=== PATIENT | female | born 1935 | race Caucasian/White ===

== ENCOUNTER 2016-07-07 21:11 | Inpatient (IN) | payer OTHER ==
[~2016-07-07] VITALS: Ht 172.7 cm; Wt 70.2 kg
--- NOTE | 2016-07-07 23:59 | DIAGNOSTIC IMAGING REPORT ---
PROCEDURE: CT HEAD WITHOUT CONTRAST INDICATION: MENTAL STATUS CHANGE TECHNIQUE: Noncontrast axial images with sagittal and coronal reformations. COMPARISON: None. FINDINGS: There is evidence of mild old small vessel disease with chronic mild atrophic changes of. Brain and ventricles are otherwise normal. No evidence of an acute process or hemorrhage. Sinuses and mastoids are normal. IMPRESSION: 1. 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 2. Otherwise negative head CT. No evidence of acute process. 3. Findings discussed with Dr. Arian Patterson at [address] scans at this facility use dose modulation, iterative reconstruction, and/or weight-based dosing when appropriate to reduce radiation dose to as low as reasonably achievable.
[2016-07-08] VITALS (10 sets, daily range): BP systolic 89–127; BP diastolic 45–85
--- NOTE | 2016-07-08 00:01 | DIAGNOSTIC IMAGING REPORT ---
PROCEDURE: XR CHEST 1 VIEW INDICATION: Found down. History of lung mass (previously biopsied). History breast carcinoma. TECHNIQUE: Portable AP view (2330 hours). COMPARISON: Compared to chest x-ray on 05/11/2013. FINDINGS: Allowing for overlying wires and electrodes, there is mild chronic focal atelectasis at the right lung base. Lungs otherwise clear. Heart and mediastinum are normal. Thorax is normal. IMPRESSION: 1. Mild chronic focal scarring at the right lung base. 2. Otherwise negative chest. 3. Findings discussed with Dr. Arian Patterson.
--- NOTE | 2016-07-08 00:27 | ED CLINICAL REPORT ---
Clinical Report - Physicians/Mid Levels [facility] [address] [place] [address] 07/07/2016 21:11 Patient: MARIA DE JESUS NICHOLSON Time Seen: 22:59 Jul 07 2016. Arrived- By private vehicle. Historian- patient. CPT: ER phys charges level 5 plus (#[id number]). EKG interpretation (#[id number]). HISTORY OF PRESENT ILLNESS Chief Complaint: DECREASED MENTAL STATUS. This occurred at an unknown time. Occurred at home. ( Patient neighbor called EMS when she found the patient in her room on the floor. Patient states she does not recall falling and does not remember when. It is estimated she fell over 12 hours ago. Patient denies pain or injury. She denies being sick or ill lately. Patient lives alone at home. She is a poor historian and unsure of her medications, complete health history, or recent surrounding events of the fall.). Pt has no memory of the event. Is still present. The patient has been confused and is described as having decreased responsiveness. The patient was found unresponsive. No alcohol recently or recent drug use. Dextro stick was not low prior to arrival. The patient has had weakness. No numbness. No difficulty walking. She has had a recent fall. Usually has normal mobility. Similar symptoms previously: None. Recent medical care: Not recently seen/assessed. REVIEW OF SYSTEMS No fever, headache, dizziness, chest pain or difficulty breathing. No cough, sputum production, sore throat or throat or abdominal pain. No nausea, diarrhea, black stools, difficulty with urination or skin rash. No joint pain, vomiting, bloody stools, back pain or weakness. No diabetic symptoms or easy bruising. The patient sustained a head injury. No difficulty walking. Denies feeling ill. All systems otherwise negative, except as recorded above. PAST HISTORY See nurses notes. ( She denies hx of stroke or GA, Cancer). Medications: Unknown. Allergies: Clindamycin HCl. Neosporin. SOCIAL HISTORY Light tobacco smoker (cigarette)- less than 1/2 a pack per day. No alcohol use or drug use. ADDITIONAL NOTES The nursing notes have been reviewed. PHYSICAL EXAM Vital Signs: 07/07/2016 21:28 BP: 131/53. HR: 80. RR: 20. O2 saturation: 95%. Pain level now: 0/10. 07/07/2016 05:15 Temp: 97.9 F. Appearance: Alert. No acute distress. Head: Mild tenderness in the right frontal and alevism region. Mild ecchymosis in the right parietal and alevism region. Eyes: Pupils equal, round and reactive to light. Neck: Normal inspection. Neck supple. No meningeal signs. (non-tender.). CVS: Normal heart rate and rhythm. Heart sounds normal. Respiratory: No respiratory distress. Breath sounds normal. Abdomen: Soft and nontender. Back: Normal inspection. Skin: Skin warm. Normal skin color. No rash. Extremities: Extremities exhibit normal ROM. No lower extremity edema. Neuro: Alert. The patient is disoriented. Mood/affect normal. Speech normal. Cranial nerves normal (as tested). No cerebellar findings. No motor deficit. No sensory deficit. Reflexes normal. LABS, X-RAYS, AND EKG EKG: Normal sinus rhythm. Normal P waves. Q waves in lead V1, V2 and V3 consistent with anterior infarction. LVH. Left axis deviation. Normal ST and T waves. Prior EKG unavailable. The study has been interpreted contemporaneously. The study has been independently viewed by me. The EKG appears to be a good tracing. Chest X-ray: (Scarring right base.). Views: AP (portable). Technique: good. The X-rays were independently viewed by me, interpreted by the radiologist and discussed with the radiologist. Laboratory Tests: UA-Culture if indicated: (JUSTINE: 07/07/2016 21:45) ( MsgRcvd 07/07/2016 22:46) Final results Test Result Flag Units (Reference) URINE COLOR STRAW URINE APPEARANCE CLEAR URINE GLUCOSE NEGATIVE (NEGATIVE) URINE BILIRUBIN NEGATIVE (NEGATIVE) URINE KETONE 2+ (NEGATIVE) URINE SPECIFIC GRAVITY 1.025 (1.010-1.030) URINE PH 6.0 (5.0-8.0) URINE PROTEIN 2+ (NEGATIVE) URINE UROBILINOGEN 0.2 EU/dL (0.2-1.0) URINE NITRITE NEGATIVE (NEGATIVE) URINE BLOOD 3+ (NEGATIVE) URINE LEUK ESTERASE NEGATIVE (NEGATIVE) URINE RBC 3-5 rbc/hpf (0-1) URINE WBC 0-1 wbc/hpf (0-1) URINE EPITHELIAL CELLS NONE SEEN EPI/hpf (0-5) URINE BACTERIA TRACE (<1+) (NONE SEEN) URINE COMMENT CULT NOT INDICATED URINE CULTURES ARE SET-UP BASED ON THE FOLLOWING CRITERIA:POSITIVE NITRITEPOSITIVE LEUKOCYTE ESTERASEGREATER THAN 10 WHITE BLOOD CELLSMODERATE (2+) OR GREATER BACTERIA CBC w Diff: (JUSTINE: 07/07/2016 21:45) ( [facility] 07/07/2016 22:29) Final results Test Result Flag Units (Reference) WHITE BLOOD COUNT 12.4 H K/uL (4.5-11.5) RED BLOOD COUNT 4.95 M/uL (4.00-5.20) HEMOGLOBIN 14.9 gm/dL (12.0-16.0) HEMATOCRIT 43.8 % (36.0-46.0) MEAN CELL VOLUME 89 fL (80-100) MEAN CORPUSCULAR HGB 30 pg (26-34) MEAN CORPUSCULAR HGB CONC 34 g/dL (31-37) RED CELL DISTRIBUTION WIDTH 14.1 % (11.6-14.8) PLATELET COUNT 203 K/uL (150-400) NEUTROPHIL % 89.6 H % (50-75) LYMPH % 7.3 L % (25-40) MONO % 3.0 % (3-14) EOSINOPHIL % 0 % (0-4) BASOPHIL % 0.1 % (0-2) Lactate, Serum: (JUSTINE: 07/07/2016 00:10) ( [facility] 07/08/2016 00:50) Final results Test Result Flag Units (Reference) LACTIC ACID 1.6 mmol/L (0.4-2.0) [id number]: (JUSTINE: 07/07/2016 21:45) ( [facility] 07/08/2016 00:33) Final results Test Result Flag Units (Reference) PROCALCITONIN 2.2 H ng/mL (0-0.5) PCT Concentration: Interpretation : Risk/option for action PCT <=0.5 ng/mL : Systemic : Low risk forinfection(sepsis): progression to severeis not likely. : systemic infection.Local bacterial : CAUTION-PCT levelsinfection is : below 0.5 ng/mL do notpossible. : exclude an infection,because localizedinfections (withoutsystemic signs) may beassociated with suchlow levels. If PCT ismeasured very earlyafter a bacterialchallenge (usually <6hours), these valuesmay still be low. Inthis case PCT shouldbe re-assessed 6-24hours later. PCT >0.5 and : Systemic infection: Moderate risk for<= 2 ng/mL : (sepsis) is : progression to severepossible, but : systemic infection.other conditions : The patient should beare known to : closely monitoredelevate PCT. : both clinically andby re-assessing PCTwithin 6-24 hours. PCT > 2 ng/mL : Systemic infection: High risk for(sepsis) is likely: progression to severeunless other : systemic infection.causes are known. : PCT >= 10 ng/mL : Important systemic: High likelihood ofinflammatory : severe sepsis orresponse, almost : septic shock.exclusively due to:severe bacterial :sepsis or septic :shock. : Urine Drug Screen: (JUSTINE: 07/07/2016 21:45) ( MsgRcvd 07/07/2016 22:35) Final results Test Result Flag Units (Reference) AMPHETAMINE/METHAMPHETAMINE NEGATIVE (NEGATIVE) BARBITURATE NEGATIVE (NEGATIVE) BENZODIAZEPINE NEGATIVE (NEGATIVE) CANNABINOID NEGATIVE (NEGATIVE) COCAINE NEGATIVE (NEGATIVE) ECSTASY NEGATIVE (NEGATIVE) METHADONE NEGATIVE (NEGATIVE) OPIATE NEGATIVE (NEGATIVE) The urine drug screen is a qualitative screening test fordrug overdose and abuse. All screen results should beconsidered as presumptive.Drugs screened for are as follows:BenzodiazepinesCocaineAmphetamines/MetamphetaminesTHC (Tetrahydrocannabinol)OpiatesBarbituratesEcstasyMethadonePositive results are unconfirmed. For confirmation, notifythe lab for the specimen to be sent to the reference lab.All confirmations must be performed by a differentmethodology.The ingestion of natural herbal and plant productscontaining Ephedra/Ephedra metabolites can produce in urineone or more substances capable of cross reacting withamphetamine/methamphetamine immunoassays. These testsprovide a preliminary result only. A more specificalternative chemical method must be used to obtain aconfirmed analytical result. CMP: (JUSTINE: 07/07/2016 21:45) ( MsgRcvd 07/07/2016 22:39) Final results Test Result Flag Units (Reference) GLUCOSE 118 H mg/dL (70-110) BUN 30 H mg/dL (7-18) CREATININE 0.9 mg/dL (0.6-1.3) Estimated GFR >60 mL/min Estimated GFR- >60 mL/min Note: Persistent reduction over 3 months in eGFR<60 mL/min/1.73 m2 defines CKD. Patients with eGFR values>=60 mL/min/1.73 m2 may also have CKD if evidence ofpersistent proteinuria. Additional information may be foundat www.kidney.org. SODIUM 144 mmol/L (136-145) POTASSIUM 2.5 *L mmol/L (3.5-5.1) CRITICAL RESULTS CALLEDCalled to JASMIN BONILLA RN 07/07/16 [id number] 2 patient identifiers used? YWas the result read back? Y CHLORIDE 102 mmol/L (98-107) CARBON DIOXIDE 33 H mmol/L (21-32) CALCIUM 9.2 mg/dL (8.5-10.1) TOTAL PROTEIN 7.3 g/dL (6.4-8.2) ALBUMIN 3.1 L g/dL (3.3-5.0) BILIRUBIN, TOTAL 0.8 mg/dL (0.0-1.0) ALKALINE PHOSPHATASE 66 U/L (46-116) AST (SGOT) 86 H U/L (15-37) ALT (SGPT) 46 U/L (12-78) MAGNESIUM 1.9 mg/dL (1.8-2.4) LIPASE 77 U/L (73-393) AMYLASE 25 U/L (25-115) . PROGRESS AND PROCEDURES Course of Care: IV NS KCL 20 meq po KCL 20 meq IV. Pt with syncope of unclear etiology. Dehydration and hypokalemia may contribute. Discussed case with on-call health care provider, (Curly). Reviewed test results. Agreed upon treatment plan and decision to admit. Health care provider will see patient in ED. Patient/family counseled. Old medical records ordered. Disposition orders written. Disposition: Admitted to Acute Care. CLINICAL IMPRESSION Syncope of unknown cause .12 lead EKG performed. Acute mental status change with lethargy and confusion. Hypokalemia Dehydration Pre-renal azotemia. (Electronically signed by Arian Patterson MD 07/08/2016 7:42)
--- NOTE | 2016-07-08 00:27 | ED ORDER SUMMARY ---
..... Patient: MARIA DE JESUS NICHOLSON OrderSheet [facility] VisitID: [id number] [address] [place] [address] 81y, F Registration Date/Time: 07/07/2016 ORDER SHEET Weight: 65.7 kg (stated) Allergies: Clindamycin HCl, Neosporin GENERAL ORDERS: CBC w Diff Urgent (22:17 07/07/2016 [facility] per protocol) (22:17 [facility]) CMP Urgent (22:17 07/07/2016 [facility] per protocol) (22:17 [facility]) UA-Culture if indicated Urgent (22:17 07/07/2016 [facility] per protocol) (22:17 [facility]) Urine Drug Screen Urgent (22:17 07/07/2016 [facility] per protocol) (22:17 [facility]) Lipase Urgent (22:17 07/07/2016 [facility] per protocol) (22:17 [facility]) Amylase Urgent (22:17 07/07/2016 [facility] per protocol) (22:17 [facility]) EKG - ER Stat (22:17 07/07/2016 [facility] per protocol) (22:17 [facility]) Chest 1V Urgent (23:12 07/07/2016 Rafa HERNADEZ) (Ack 23:17 AMcQuoid ER Tech1) (23:31 RFay) CT Head wo Cont Urgent (23:12 07/07/2016 Rafa HERNADEZ) (Ack 23:17 AMcQuoid ER Tech1) (23:31 RFay) Criminology Professor (Continuous) (23:12 07/07/2016 Rafa HERNADEZ) (Ack 23:17 AMcQuoid ER Tech1) (23:23 HSoule) Pulse oximeter (23:13 07/07/2016 Rafa HERNADEZ) (Ack 23:17 AMcQuoid ER Tech1) (23:23 HSoule) - (Orthostatic BP/P) (23:13 07/07/2016 Rafa HERNADEZ) (Ack 23:17 AMcQuoid ER Tech1) (0:09 HSoule) Lactate, Serum Urgent (23:42 07/07/2016 Rafa HERNADEZ) (Ack 23:47 AMcQuoid ER Tech1) (0:16 AMcQuoid ER Tech1) PCT (Procalcitonin) Urgent (23:42 07/07/2016 Rafa HERNADEZ) (Ack 23:47 AMcQuoid ER Tech1) (0:16 AMcQuoid ER Tech1) Blood Culture (No) (N/A) Urgent (01:11 07/08/2016 Rafa HERNADEZ) (Ack 1:19 AMcQuoid ER Tech1) (1:39 HSoule) MEDICATION ORDERS: KCl PO 20 meq (NOW) (:37 07/07/2016 Rafa HERNADEZ) (Ack 23:39 HSoule) (0:05 HSoule) IV FLUIDS: IV Saline Lock (:07/07/2016 Rafa HERNADEZ) (23:23 HSoule) IV NS : initial bolus 500 mL (1000 mL/hr), then 250 mL/hr for 2h (NOW); Routine (:07/07/2016 Rafa HERNADEZ) (Ack 23:39 HSoule) (0:05 HSoule) KCl IV 20 meq/100mL (Run no faster than 10 units/hr, Run no faster than 10 mEq/hr) (23:37 07/07/2016 Rfaa HERNADEZ) (Ack 23:39 HSoule) (0:06 HSoule) ORDER SHEET NOTES: [Electronically signed by Mayte Vargas (05:16 07/08/2016)] [Electronically signed by Arian Patterson MD (07:42 07/08/2016)] [Electronically locked/signed by Mayte Vargas (05:16 07/08/2016)]
--- NOTE | 2016-07-08 00:27 | ED ORDER SUMMARY ---
..... Patient: MARIA DE JESUS NICHOLSON OrderSheet [facility] VisitID: [id number] [address] [place] [address] 81y, F Registration Date/Time: 07/07/2016 ORDER SHEET Weight: 65.7 kg (stated) Allergies: Clindamycin HCl, Neosporin GENERAL ORDERS: CBC w Diff Urgent (22:17 07/07/2016 E[facility] per protocol) (22:17 E[facility]ham) CMP Urgent (22:17 07/07/2016 E[facility] per protocol) (22:17 E[facility]) UA-Culture if indicated Urgent (22:17 07/07/2016 E[place] per protocol) (22:17 E[facility]) Urine Drug Screen Urgent (22:17 07/07/2016 E[place] per protocol) (22:17 E[facility]ham) Lipase Urgent (22:17 07/07/2016 E[facility] per protocol) (22:17 [facility]) Amylase Urgent (22:17 07/07/2016 E[facility]ham per protocol) (22:17 E[facility]ham) EKG - ER Stat (22:17 07/07/2016 E[facility]ham per protocol) (22:17 E[facility]ham) Chest 1V Urgent (23:12 07/07/2016 Rafa HERNADEZ) (Ack 23:17 AMcQuoid ER Tech1) (23:31 RFay) CT Head wo Cont Urgent (23:12 07/07/2016 Rafa HERNADEZ) (Ack 23:17 AMcQuoid ER Tech1) (23:31 RFay) Propellant Assembler (Continuous) (23:12 07/07/2016 Rafa HERNADEZ) (Ack 23:17 AMcQuoid ER Tech1) (23:23 HSoule) Pulse oximeter (23:13 07/07/2016 Rafa HERNADEZ) (Ack 23:17 AMcQuoid ER Tech1) (23:23 HSoule) - (Orthostatic BP/P) (23:13 07/07/2016 Rafa HERNADEZ) (Ack 23:17 AMcQuoid ER Tech1) (0:09 HSoule) Lactate, Serum Urgent (23:42 07/07/2016 Rafa HERNADEZ) (Ack 23:47 AMcQuoid ER Tech1) (0:16 AMcQuoid ER Tech1) PCT (Procalcitonin) Urgent (23:42 07/07/2016 Rafa HERNADEZ) (Ack 23:47 AMcQuoid ER Tech1) (0:16 AMcQuoid ER Tech1) Blood Culture (No) (N/A) Urgent (01:11 07/08/2016 Rafa HERNADEZ) (Ack 1:19 AMcQuoid ER Tech1) (1:39 HSoule) MEDICATION ORDERS: KCl PO 20 meq (NOW) (:37 07/07/2016 Rafa HERNADEZ) (Ack 23:39 HSoule) (0:05 HSoule) IV FLUIDS: IV Saline Lock (:07/07/2016 Rafa HERNADEZ) (23:23 HSoule) IV NS : initial bolus 500 mL (1000 mL/hr), then 250 mL/hr for 2h (NOW); Routine (:07/07/2016 Rafa HERNADEZ) (Ack 23:39 HSoule) (0:05 HSoule) KCl IV 20 meq/100mL (Run no faster than 10 units/hr, Run no faster than 10 mEq/hr) (23:37 07/07/2016 Rafa HERNADEZ) (Ack 23:39 HSoule) (0:06 HSoule) ORDER SHEET NOTES: [Electronically signed by Mayte Vargas (05:16 07/08/2016)] [Electronically signed by Arian Patterson MD (07:42 07/08/2016)] [Electronically locked/signed by Mayte Vargas (05:16 07/08/2016)]
--- NOTE | 2016-07-08 00:27 | ED CLINICAL REPORT ---
Clinical Report - Physicians/Mid Levels [facility] [address] [place] [address] 07/07/2016 21:11 Patient: MARIA DE JESUS NICHOLSON Time Seen: 22:59 Jul 07 2016. Arrived- By private vehicle. Historian- patient. CPT: ER phys charges level 5 plus (#[id number]). EKG interpretation (#[id number]). HISTORY OF PRESENT ILLNESS Chief Complaint: DECREASED MENTAL STATUS. This occurred at an unknown time. Occurred at home. ( Patient neighbor called EMS when she found the patient in her room on the floor. Patient states she does not recall falling and does not remember when. It is estimated she fell over 12 hours ago. Patient denies pain or injury. She denies being sick or ill lately. Patient lives alone at home. She is a poor historian and unsure of her medications, complete health history, or recent surrounding events of the fall.). Pt has no memory of the event. Is still present. The patient has been confused and is described as having decreased responsiveness. The patient was found unresponsive. No alcohol recently or recent drug use. Dextro stick was not low prior to arrival. The patient has had weakness. No numbness. No difficulty walking. She has had a recent fall. Usually has normal mobility. Similar symptoms previously: None. Recent medical care: Not recently seen/assessed. REVIEW OF SYSTEMS No fever, headache, dizziness, chest pain or difficulty breathing. No cough, sputum production, sore throat or throat or abdominal pain. No nausea, diarrhea, black stools, difficulty with urination or skin rash. No joint pain, vomiting, bloody stools, back pain or weakness. No diabetic symptoms or easy bruising. The patient sustained a head injury. No difficulty walking. Denies feeling ill. All systems otherwise negative, except as recorded above. PAST HISTORY See nurses notes. ( She denies hx of stroke or AR, Cancer). Medications: Unknown. Allergies: Clindamycin HCl. Neosporin. SOCIAL HISTORY Light tobacco smoker (cigarette)- less than 1/2 a pack per day. No alcohol use or drug use. ADDITIONAL NOTES The nursing notes have been reviewed. PHYSICAL EXAM Vital Signs: 07/07/2016 21:28 BP: 131/53. HR: 80. RR: 20. O2 saturation: 95%. Pain level now: 0/10. 07/07/2016 05:15 Temp: 97.9 F. Appearance: Alert. No acute distress. Head: Mild tenderness in the right frontal and taoism region. Mild ecchymosis in the right parietal and taoism region. Eyes: Pupils equal, round and reactive to light. Neck: Normal inspection. Neck supple. No meningeal signs. (non-tender.). CVS: Normal heart rate and rhythm. Heart sounds normal. Respiratory: No respiratory distress. Breath sounds normal. Abdomen: Soft and nontender. Back: Normal inspection. Skin: Skin warm. Normal skin color. No rash. Extremities: Extremities exhibit normal ROM. No lower extremity edema. Neuro: Alert. The patient is disoriented. Mood/affect normal. Speech normal. Cranial nerves normal (as tested). No cerebellar findings. No motor deficit. No sensory deficit. Reflexes normal. LABS, X-RAYS, AND EKG EKG: Normal sinus rhythm. Normal P waves. Q waves in lead V1, V2 and V3 consistent with anterior infarction. LVH. Left axis deviation. Normal ST and T waves. Prior EKG unavailable. The study has been interpreted contemporaneously. The study has been independently viewed by me. The EKG appears to be a good tracing. Chest X-ray: (Scarring right base.). Views: AP (portable). Technique: good. The X-rays were independently viewed by me, interpreted by the radiologist and discussed with the radiologist. Laboratory Tests: UA-Culture if indicated: (JUSTINE: 07/07/2016 21:45) ( MsgRcvd 07/07/2016 22:46) Final results Test Result Flag Units (Reference) URINE COLOR STRAW URINE APPEARANCE CLEAR URINE GLUCOSE NEGATIVE (NEGATIVE) URINE BILIRUBIN NEGATIVE (NEGATIVE) URINE KETONE 2+ (NEGATIVE) URINE SPECIFIC GRAVITY 1.025 (1.010-1.030) URINE PH 6.0 (5.0-8.0) URINE PROTEIN 2+ (NEGATIVE) URINE UROBILINOGEN 0.2 EU/dL (0.2-1.0) URINE NITRITE NEGATIVE (NEGATIVE) URINE BLOOD 3+ (NEGATIVE) URINE LEUK ESTERASE NEGATIVE (NEGATIVE) URINE RBC 3-5 rbc/hpf (0-1) URINE WBC 0-1 wbc/hpf (0-1) URINE EPITHELIAL CELLS NONE SEEN EPI/hpf (0-5) URINE BACTERIA TRACE (<1+) (NONE SEEN) URINE COMMENT CULT NOT INDICATED URINE CULTURES ARE SET-UP BASED ON THE FOLLOWING CRITERIA:POSITIVE NITRITEPOSITIVE LEUKOCYTE ESTERASEGREATER THAN 10 WHITE BLOOD CELLSMODERATE (2+) OR GREATER BACTERIA CBC w Diff: (JUSTINE: 07/07/2016 21:45) ( [facility] 07/07/2016 22:29) Final results Test Result Flag Units (Reference) WHITE BLOOD COUNT 12.4 H K/uL (4.5-11.5) RED BLOOD COUNT 4.95 M/uL (4.00-5.20) HEMOGLOBIN 14.9 gm/dL (12.0-16.0) HEMATOCRIT 43.8 % (36.0-46.0) MEAN CELL VOLUME 89 fL (80-100) MEAN CORPUSCULAR HGB 30 pg (26-34) MEAN CORPUSCULAR HGB CONC 34 g/dL (31-37) RED CELL DISTRIBUTION WIDTH 14.1 % (11.6-14.8) PLATELET COUNT 203 K/uL (150-400) NEUTROPHIL % 89.6 H % (50-75) LYMPH % 7.3 L % (25-40) MONO % 3.0 % (3-14) EOSINOPHIL % 0 % (0-4) BASOPHIL % 0.1 % (0-2) Lactate, Serum: (JUSTINE: 07/07/2016 00:10) ( [facility] 07/08/2016 00:50) Final results Test Result Flag Units (Reference) LACTIC ACID 1.6 mmol/L (0.4-2.0) [id number]: (JUSTINE: 07/07/2016 21:45) ( [facility] 07/08/2016 00:33) Final results Test Result Flag Units (Reference) PROCALCITONIN 2.2 H ng/mL (0-0.5) PCT Concentration: Interpretation : Risk/option for action PCT <=0.5 ng/mL : Systemic : Low risk forinfection(sepsis): progression to severeis not likely. : systemic infection.Local bacterial : CAUTION-PCT levelsinfection is : below 0.5 ng/mL do notpossible. : exclude an infection,because localizedinfections (withoutsystemic signs) may beassociated with suchlow levels. If PCT ismeasured very earlyafter a bacterialchallenge (usually <6hours), these valuesmay still be low. Inthis case PCT shouldbe re-assessed 6-24hours later. PCT >0.5 and : Systemic infection: Moderate risk for<= 2 ng/mL : (sepsis) is : progression to severepossible, but : systemic infection.other conditions : The patient should beare known to : closely monitoredelevate PCT. : both clinically andby re-assessing PCTwithin 6-24 hours. PCT > 2 ng/mL : Systemic infection: High risk for(sepsis) is likely: progression to severeunless other : systemic infection.causes are known. : PCT >= 10 ng/mL : Important systemic: High likelihood ofinflammatory : severe sepsis orresponse, almost : septic shock.exclusively due to:severe bacterial :sepsis or septic :shock. : Urine Drug Screen: (JUSTINE: 07/07/2016 21:45) ( MsgRcvd 07/07/2016 22:35) Final results Test Result Flag Units (Reference) AMPHETAMINE/METHAMPHETAMINE NEGATIVE (NEGATIVE) BARBITURATE NEGATIVE (NEGATIVE) BENZODIAZEPINE NEGATIVE (NEGATIVE) CANNABINOID NEGATIVE (NEGATIVE) COCAINE NEGATIVE (NEGATIVE) ECSTASY NEGATIVE (NEGATIVE) METHADONE NEGATIVE (NEGATIVE) OPIATE NEGATIVE (NEGATIVE) The urine drug screen is a qualitative screening test fordrug overdose and abuse. All screen results should beconsidered as presumptive.Drugs screened for are as follows:BenzodiazepinesCocaineAmphetamines/MetamphetaminesTHC (Tetrahydrocannabinol)OpiatesBarbituratesEcstasyMethadonePositive results are unconfirmed. For confirmation, notifythe lab for the specimen to be sent to the reference lab.All confirmations must be performed by a differentmethodology.The ingestion of natural herbal and plant productscontaining Ephedra/Ephedra metabolites can produce in urineone or more substances capable of cross reacting withamphetamine/methamphetamine immunoassays. These testsprovide a preliminary result only. A more specificalternative chemical method must be used to obtain aconfirmed analytical result. CMP: (JUSTINE: 07/07/2016 21:45) ( MsgRcvd 07/07/2016 22:39) Final results Test Result Flag Units (Reference) GLUCOSE 118 H mg/dL (70-110) BUN 30 H mg/dL (7-18) CREATININE 0.9 mg/dL (0.6-1.3) Estimated GFR >60 mL/min Estimated GFR- >60 mL/min Note: Persistent reduction over 3 months in eGFR<60 mL/min/1.73 m2 defines CKD. Patients with eGFR values>=60 mL/min/1.73 m2 may also have CKD if evidence ofpersistent proteinuria. Additional information may be foundat [email or web address]. SODIUM 144 mmol/L (136-145) POTASSIUM 2.5 *L mmol/L (3.5-5.1) CRITICAL RESULTS CALLEDCalled to JASMIN BONILLA RN 07/07/16 [id number] 2 patient identifiers used? YWas the result read back? Y CHLORIDE 102 mmol/L (98-107) CARBON DIOXIDE 33 H mmol/L (21-32) CALCIUM 9.2 mg/dL (8.5-10.1) TOTAL PROTEIN 7.3 g/dL (6.4-8.2) ALBUMIN 3.1 L g/dL (3.3-5.0) BILIRUBIN, TOTAL 0.8 mg/dL (0.0-1.0) ALKALINE PHOSPHATASE 66 U/L (46-116) AST (SGOT) 86 H U/L (15-37) ALT (SGPT) 46 U/L (12-78) MAGNESIUM 1.9 mg/dL (1.8-2.4) LIPASE 77 U/L (73-393) AMYLASE 25 U/L (25-115) . PROGRESS AND PROCEDURES Course of Care: IV NS KCL 20 meq po KCL 20 meq IV. Pt with syncope of unclear etiology. Dehydration and hypokalemia may contribute. Discussed case with on-call health care provider, (Curly). Reviewed test results. Agreed upon treatment plan and decision to admit. Health care provider will see patient in ED. Patient/family counseled. Old medical records ordered. Disposition orders written. Disposition: Admitted to Acute Care. CLINICAL IMPRESSION Syncope of unknown cause .12 lead EKG performed. Acute mental status change with lethargy and confusion. Hypokalemia Dehydration Pre-renal azotemia. (Electronically signed by Arian Patterson MD 07/08/2016 7:42)
--- NOTE | 2016-07-08 00:27 | ED NURSING NOTES ---
Clinical Report - Nurses [facility] [address] [place] [address] 07/07/2016 21:11 Patient: MARIA DE JESUS NICHOLSON TRIAGE Triage time 21:Jul 07 2016. Acuity: LEVEL 3. Chief Complaint: FALL while walking, onto a hard surface and landed on their head and face down. SEPSIS SCREEN: Sepsis Screen: negative. Negative (no infection suspected/documented). Acute mental status change. Physician notified. NIYA COMA SCORE: Niya Coma Scale: 15- eyes open spontaneously (4); best verbal response- oriented x 4 (5); best motor response- obeys commands (6). --21:35 Mayte Vargas 21:28 07/07/16. BP: 131/53. HR: 80. RR: 20. O2 saturation: 95% on room air. Pain level now: 0/10. --21:35 Mayte Vargas 05:15 07/07/16. Temp: 97.9 F (oral). --05:15 Mayte Vargas. Weight: 65.7 kg stated. Height/Length: 66 inches Per Patient. BMI: 23.4. --21:29 Mayte Vargas. Medications Unknown. --21:30 Mayte Vargas. Medication/allergy information source: the patient and EMS. --21:35 Mayte Vargas. Allergies Clindamycin HCl. Neosporin. --21:29 Mayte Vargas. History Arrived by EMS. Historian: EMS. Primary physician (ayan). This occurred at an unknown time. Occurred at home. ( Patient neighbor called EMS when she found the patient in her room on the floor. Patient states she does not recall falling and does not remember when. It is estimated she fell over 12 hours ago. Patient denies pain or injury. She denies being sick or ill lately. Patient lives alone at home. She is a poor historian and unsure of her medications, complete health history, or recent surrounding events of the fall.). Treatment TALENT ANALYST: See EMS report. BP: 136 / palp. HR: 82. O2 saturation: 95. ( BG 137). Trauma activation: Pre-hospital notification of patient arrival was received. PAST MEDICAL HX: Tetanus status: unknown. Immunizations: status is unknown. The patient is post-menopausal. SOCIAL HX: Light tobacco smoker (cigarette)- less than 1/2 a pack per day. No alcohol use or drug use. No infectious disease exposure. ABUSE ASSESSMENT: No report of abuse. NUTRITIONAL RISK ASSESSMENT: The nutritional risk assessment revealed no deficiencies. FUNCTIONAL ASSESSMENT: Functional assessment: no impairments noted. LEARNING NEEDS ASSESSMENT: The learning needs assessment revealed no barriers. FALL RISK ASSESSMENT: Fall risk assessment completed. Risk factors identified include patient age greater than 65 years and history of fall. Fall interventions initiated. Side rails up x2. Brakes on Bed in low position. Patient visible from nurses' station. Call light in reach of patient. Instructed not to get up without assistance. SKIN INTEGRITY ASSESSMENT: Skin integrity risk assessment completed. No skin integrity risk identified. --21:35 Mayte Vargas. PROBLEMS: Cancer. --21:30 Mayte Vargas. ADDITIONAL SURGERIES: Ankle repair. Appendectomy. Cholecystectomy. Mastectomy. --21:30 Mayte Vargas. Interventions ID band on patient. To treatment room. --21:35 Mayte Vargas. PHYSICAL ASSESSMENT To room via stretcher. Patient gowned. GENERAL / NEURO / PSYCH: Alert. Appears in no acute distress. HEENT: Pupils equal, round and reactive to light. Head non-tender. ( abrasions over right side of face). RESPIRATORY: Respirations not labored. CVS: Normal heart rate and rhythm. GI / : Abdomen soft and nontender. Patient is incontinent of urine. Patient is incontinent of stool. EXTREMITIES: Right hand: tenderness and ecchymosis. Left elbow: tenderness and ecchymosis. SKIN: Skin is warm and dry. --21:36 Mayte Vargas GENERAL / NEURO / PSYCH: Oriented X 4. [place] Coma Scale: 14- eyes open spontaneously (4); best verbal response- disoriented (4); best motor response- obeys commands (6). ( patient is oriented to time, place and person. She is oriented to her current situation but is unaware of the events surrounding her arrival to the emergency department). --21:38 Mayte Vargas. NURSING PROGRESS NOTES Patient gowned. Reassurance given to the patient. Two patient identifiers checked. Call light placed in reach. Side rails up x 1. Bed placed in lowest position. Brakes of bed on. Patient ready for evaluation- chart flagged and ED physician notified. ( Patient episode of incontinence. Patient was cleaned and bedding changed. Skin was assessed over the back and buttock and is intact. Patient states she feels dizzy and confused.). --21:37 Mayte Vargas 14 fr in/out catheterization. During procedure hand hygiene observed and sterile equipment and aseptic technique used. Return of less than 50 mL yellow-colored clear urine. She tolerated procedure well. --21:38 Mayte Vargas 21:43 07/07/2016 Site #1 started via IV in the right antecubital space with an 20g angiocath, with aseptic technique and good blood return; one attempt. Blood drawn: rainbow set. Labeled in the presence of the patient and sent to the lab. Saline lock flushed with 10 mL saline. --21:53 Mayte Vargas EKG time: (21:51 Jul 07 2016). EKG was ordered, performed by a nurse and shown to the ED physician. --21:54 Mayte Vargas 22:28 07/07/16. BP: 116/54. HR: 80. RR: 20. O2 saturation: 95% on room air. --22:28 Mayte Vargas Critical value relayed to ED by Lab. Critical value received by Anitha. K: 2.5. Critical value read back. Verified lab result. --22:40 Anitha Loyola Patient transported to ID by stretcher with tech. (23:Jul 07 2016). --23:23 Mayte Vargas 00:05 07/08/2016 Started bag #1 1000 mL IV Fluids IV NS (Saline); at 1000 mL/hr over 30 minute(s) via site #1 via IV pump. Allergies verified and confirmed 5 rights. IV patency established. IV site checked: no pain, redness, or swelling. IV flushed thoroughly pre- and post-medication administration. --00:05 Mayte Vargas 00:05 07/08/2016 KCL (Potassium Chloride ER) PO Tablets 20 meq given. Allergies verified and confirmed 5 rights. --00:05 Mayte Vargas 00:06 07/08/2016 Started 20 meq of KCL (Potassium Chloride) IVPB in bag #1 100 mL; at 50 mL/hr over 2 hour(s) via site #1 via IV pump. Allergies verified and confirmed 5 rights. IV patency established. IV site checked: no pain, redness, or swelling. IV flushed thoroughly pre- and post-medication administration. --00:06 Mayte Vargas 00:06 07/08/16. BP: 117/53 taken while lying. HR: 80. --00:06 Mayte Vargas 00:06 07/08/16. BP: 116/53 taken while sitting. HR: 83. --00:07 Mayte Vargas 00:07 07/08/16. BP: 114/60 taken while standing. HR: 80. --00:07 Mayte Vargas ( Patient assisted up to bedside commode. Patient unstable on her feet. Reporting her legs feel weak. Patient confused, asking if her daughter is coming back to the room and asking writing RN about "the new baby". Provider notified). --00:08 Mayte Vargas Patient ID band checked for patient name and birthdate: patient confirmed. Blood samples drawn from the right antecubital space peripheral IV site with Vacutainer by nurse ; labeled in presence of the patient and sent to lab: rodriguez top. Initial blood discarded and additional blood sent to lab. Line flushed with 10 mL normal saline post blood draw. --00:08 Mayte Vargas 00:56 07/08/16. BP: 109/69. HR: 79. RR: 20. O2 saturation: 98% on room air. --00:56 Mayte Vargas 01:39 07/08/2016 IV Fluids IV NS Continued: upon admission at the rate of 250 mL/hr. 200 mL remaining bag #1. IV patency established. IV site checked: no pain, redness, or swelling. IV flushed thoroughly. --01:39 Mayte Vargas 01:39 07/08/2016 KCL IVPB Continued: upon admission at the rate of 50 mL/hr. 30 mL remaining bag #1. IV patency established. IV site checked: no pain, redness, or swelling. IV flushed thoroughly. --:39 Mayte Vargas. DISPOSITION / DISCHARGE 01:18 07/08/16. BP: 120/67. HR: 83. RR: 20. O2 saturation: 96% on room air. --01:18 Mayte Vargas Disposition: observation in Acute Care. Bed obtained. Patient's personal items include, none. --01:19 Mayte Vargas Report was given to a nurse via a phone call. Report included patient's care, treatment, medications, reviewed medication reconcilliation, and condition (including any recent changes or anticipated changes). All questions were answered. Report was acknowledged and care was transferred. (Jak CRAMER). --01:25 Mayte Vargas 01:38 07/08/16. Transported via stretcher by nurse with monitor and IV. --:38 Mayte Vargas 01:39 07/08/2016 Site #[address] upon admission; patent and no pain. Good blood return present. Converted to saline lock; flushes easily. --01:39 Mayte Vargas. Locked/Released at 07/08/2016 5:16 by Mayte Vargas,
--- NOTE | 2016-07-08 02:26 | Progress Note ---
Subjective General Admission History and Physical Examination Patient Name: Whit Murphy Admission Date: 07/08/2016 Primary Care Provider: Dr. Weaver Attending Physician: Dr. Owen M.D. Admitting Physician: Jn Rawls Code Status: Full Code (needing to review all paperwork with the family) Room. SUBJECTIVE Historian: Patient (self) Reliability: Fair to poor Chief Complaint: Syncopal or presyncopal event Floor level fall History of Present Illness: The patient is an 81-year-old white female who this evening was found down in her home. She was found to be mildly incoherent at the time. At the [facility] ED head CT, along with a chest x-ray, multiple labs were done. Patient also reported weakness and tiredness. Patient is unsure or unclear as to why she fell. Patient does not remember the event. The [facility] ER evaluation was inconclusive regarding causation for the fall. Patient denied palpitations, previous syncopal events. No chest pain, no weakness noted. Patient does not recall stumbling. Patient appears to be mildly confused to emergency department. Patient was admitted by Jn Rawls M.D. for further evaluation and treatment. PAST MEDICAL HISTORY Illnesses: 1. Hypertension 2. Osteoarthritis, lumbar spine Allergies: Clindamycin Medications: 1. Hydrochlorothiazide 25-50 mg by mouth daily 2. Benazepril. 20 mg by mouth daily 3. Lovastatin unknown dosage, 1 tab daily Surgery: Orthopedic procedures for ankle fracture; right mallear fracture. Cholecystectomy. Hysterectomy. Right medial meniscectomy Foot surgeries Injuries: 1. Multiple injuries in the past involving ankle and feet Hospitalizations: 1. 2009 FAMILY HISTORY Parents: 1. Father, hypertension, kidney cancer 70s. 2. Mother from breast cancer and colon cancer (80s) Siblings: 1. Sister recently passing September 2014 from complications related to diabetes, Children: 1. 3 children; child lives in [facility]. SOCIAL HISTORY 1. Marital Status: ; None synagogue identity unknown 3. Education: College educated 4. Employment History: Worked in [employer] 5. Occupational health exposures: None detected HABITS 1. Tobacco: Stopped smoking recently; multiple years of smoking 2. Drugs: No prior drug use 3. Alcohol: Normal 4. Caffeine: Unknown HEALTH SUPERVISION Item/Test Unknown ADVANCED DIRECTIVES: 1. Living well: Unknown 2. POLST: [POLST] unknown 3. Code Status: [CODE STATUS] full 4. 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 Donor card: Unknown REVIEW OF SYSTEMS Remarkable for those things stated in the history of present illness and past medical history. Seventeen point review of system completed with the following notable findings: ROS Constitutional Sweats. Denies: Fever, Chills. Eyes Denies: Pain. ENT Denies: Ear Discharge, Nose Pain. Respiratory SOB w/exertion, Wheezing. Cardiovascular Denies: Chest Pain, Palpitations. Gastrointestinal Denies: Nausea, Vomiting, Abdominal Pain. Musculoskeletal Back Pain, Leg Pain. Skin Bruising. Physical Exam Vital Signs / I&Os 131/53. HR: 80. RR: 20. O2 saturation: 95% on room air. General Appearance Cooperative, Mild distress, confused HEENT EOMI, bruising and abrasions over the right forehead, right face. Lungs Clear to auscultation Neck Supple, No JVD Cardiovascular Normal S1 and S2 Abdomen Soft, No tenderness Pelvic no bruising noted on the pelvis. Patient is complaining of pain. Extremities areas of bruising on the right hand, left elbow, left forearm Psych/Mental Status Confused LAB Results Laboratory Tests 07/07 07/07 2145 2145 Chemistry Plasma Sodium (136 - 145 mmol/L) 144 Plasma Potassium (3.5 - 5.1 mmol/L) 2.5 Plasma Chloride (98 - 107 mmol/L) 102 CO2 (Enzymatic) (21 - 32 mmol/L) 33 BUN (7 - 18 mg/dL) 30 Creatinine (0.6 - 1.3 mg/dL) 0.9 Est GFR ( Amer) (mL/min) >60 Est GFR (Non-Af Amer) (mL/min) >60 Glucose (70 - 110 mg/dL) 118 Plasma Calcium (8.5 - 10.1 mg/dL) 9.2 Plasma Magnesium (1.8 - 2.4 mg/dL) 1.9 Total Bilirubin (0.0 - 1.0 mg/dL) 0.8 AST (15 - 37 U/L) 86 ALT (12 - 78 U/L) 46 Alkaline Phosphatase (46 - 116 U/L) 66 Total Protein (6.4 - 8.2 g/dL) 7.3 Albumin (3.3 - 5.0 g/dL) 3.1 Amylase (25 - 115 U/L) 25 Lipase (73 - 393 U/L) 77 Procalcitonin (0 - 0.5 ng/mL) 2.2 Hematology WBC (4.5 - 11.5 K/uL) 12.4 RBC (4.00 - 5.20 M/uL) 4.95 Hgb (12.0 - 16.0 gm/dL) 14.9 Hct (36.0 - 46.0 %) 43.8 MCV (80 - 100 fL) 89 MCH (26 - 34 pg) 30 RDW (11.6 - 14.8 %) 14.1 Neut % (Auto) (50 - 75 %) 89.6 Lymph % (Auto) (25 - 40 %) 7.3 [place] % (Auto) (3 - 14 %) 3.0 Eos % (Auto) (0 - 4 %) 0 Baso % (Auto) (0 - 2 %) 0.1 Plt Count, EDTA (150 - 400 K/uL) 203 PUBS MCHC (31 - 37 g/dL) 34 Toxicology Urine Opiates Screen (NEGATIVE) NEGATIVE Urine Methadone Screen (NEGATIVE) NEGATIVE Ur Barbiturates Screen (NEGATIVE) NEGATIVE U Amphetamin/Meth Scrn (NEGATIVE) NEGATIVE MDMA (Ecstasy) Screen (NEGATIVE) NEGATIVE U Benzodiazepines Scrn (NEGATIVE) NEGATIVE Urine Cocaine Screen (NEGATIVE) NEGATIVE U Cannabinoids Screen (NEGATIVE) NEGATIVE Urines Urine Color STRAW Urine Appearance CLEAR Urine pH (5.0 - 8.0) 6.0 Ur Specific [place] (1.010 - 1.030) 1.025 Urine Protein (NEGATIVE) 2+ Urine Ketones (NEGATIVE) 2+ Urine Blood (NEGATIVE) 3+ Urine Nitrite (NEGATIVE) NEGATIVE Urine Bilirubin (NEGATIVE) NEGATIVE Urine Urobilinogen (0.2 - 1.0 EU/dL) 0.2 Ur Leukocyte Esterase (NEGATIVE) NEGATIVE Urine RBC (0 - 1 rbc/hpf) 3-5 Urine WBC (0 - 1 wbc/hpf) 0-1 Ur Epithelial Cells (0 - 5 EPI/hpf) NONE SEEN Urine Bacteria (NONE SEEN) TRACE (<1+) Urine Glucose (NEGATIVE) NEGATIVE Urine Comment CULT NOT INDICATED Microbiology Date/Time Procedure - Status Source Growth 07/08 0123 Blood Culture - RECD BLOOD Assessment and Plan Problem List 1. Fall Plan Etiology for the falls, not known. Patient's had previous falls in the past fractures. Patient is placed on telemetry. Echocardiogram in the morning. Serial labs of creatinine kinase should be followed, however , lab values noted available 2. Syncope and collapse Plan Probable syncopal event with collapse. Neuro checks overnight. Cautioned with placing patient back in the home environment without sufficient help 3. Confusion Plan Mild degree of confusion at times during the interview. CT was negative for acute findings. However, chronic findings are noted. Neuro checks. 4. Hypokalemia Plan Replace potassium. Value the magnesium. 5. Hypertension Plan Following watch the blood pressure. Continue the home medication including the benazepril and hydrochlorothiazide. He is also with hyperlipidemia. Maintain the statin therapy. Current status: Fair Anticipated discharge date: 3-4 days Anticipated discharge placement: Assisted living with independence. Patient care time: Time spent in chart review, patient interview, physical exam, CPOE, and care documentation: 70 minutes Visit to patient today: 1 Complexity of care: Moderate E&M Codes Admission: Inpt-Moderate/[id number]
--- NOTE | 2016-07-08 07:42 | ED MAR SUMMARY ---
..... Medication Administration Record [facility] [address] [place] [address] Patient: MARIA DE JESUS NICHOLSON Visit ID: [id number] 81y, F Weight: 65.7 kg Height/Length: 66 in BMI: 23.4 ALLERGIES: Clindamycin HCl, Neosporin Start 00:05 07/08/2016 Mayte Vargas,, Continued Upon Admission 01:39 07/08/2016 Mayte Vargas, Medication Administered: IV NS (SALINE), Dose: IV Fluids over 30 minute(s), Rate: 1000 mL/hr, Dispensed: 1000 mL bag, Site: #1 right AC. Medication Ordered: IV NS : initial bolus 500 mL (1000 mL/hr), then 250 mL/hr for 2h (NOW); Routine. Given 00:05 07/08/2016 Mayte Vargas, Medication Administered: KCL [PO] (POTASSIUM CHLORIDE ER), Dose: 20 meq Tablets PO. Medication Ordered: KCl PO 20 meq (NOW). Start 00:06 07/08/2016 Mayte Vargas,, Continued Upon Admission 01:39 07/08/2016 Mayte Vargas, Medication Administered: KCL [IVPB] (POTASSIUM CHLORIDE), Dose: 20 meq IVPB over 2 hour(s), Rate: 50 mL/hr, Dispensed: 100 mL bag, Site: #1 right AC. Medication Ordered: KCl IV 20 meq/100mL (Run no faster than 10 units/hr, Run no faster than 10 mEq/hr).
--- NOTE | 2016-07-08 07:42 | ED DISCHARGE INSTRUCTIONS ---
Patient: MARIA DE JESUS NICHOLSON General Instructions [facility] VisitID: [id number] [place] [address] 81y, F Registration Date/Time: 07/07/2016 Syncope of unknown cause .12 lead EKG performed. Acute mental status change with lethargy and confusion. Hypokalemia Dehydration Pre-renal azotemia. ADDITIONAL INFORMATION Confusion Confusion is a change in a persons ability to think clearly. There may be trouble recognizing familiar people and places, or knowing what day it is. Memory, judgement and decision-making may also be affected. In severe cases there may be limited or no response to verbal commands. Confusion may occur suddenly or develop gradually over time. There are many injuries and medical conditions that can cause this problem. These include brain injury, side effect of medication, intoxication, withdrawal from drugs, infection, stroke, dementia,mental illness and other causes. The exam and testing today did not show the cause of this problem. Further testing will be needed. Specific treatment and hope for recovery depend on the cause of this symptom. Home Care: Be sure someone is with the confused person at all times. He/she should not be left alone or unsupervised. Keep medicines (prescription and [id number]) in a secure place, under the caregivers control. A person with confusion should not be allowed to take their own medicines.This needs to be supervised by the caregiver. Ways to help a person with confusion: Activities:Establish a daily routine. Change can be a source of stress for someone with confusion. Make a time schedule for common tasks such as: bathing, dressing, taking medicines, meals, going for walks, shopping, naps and bed time. Communication:Speak slowly and clearly with a gentle tone of voice. Use short simple words and sentences. Ask one question at a time. Do not interrupt, criticize or argue. Be calm and supportive. Use friendly facial expressions. Use pointing and touching to help communicate. If there has been loss of long-term memory, do not ask questions about past events. This would only cause frustration for the person. Behavioral tips:Use lists, signs, family photos, clocks and calendars as memory aids. Label cabinets and drawers. Try to distract, not confront, the patient. When he/she becomes frustrated or upset, redirect his/her attention to eating or some other activity of interest. Medical-Legal tips: If this proves to be a permanent condition, talk to your doctor and/or computer systems support specialist about getting a Power of Wrapper Stemmer Operator for health care and for financial decisions. It is best to do this while the person can still sign legal documents and make his/davida own legal decisions. Otherwise, a court order will be required. Follow-Up with the patients doctor or as advised by our staff for further testing. Get Prompt Medical Attention if any of the following occur: Frequent falling Refusal to eat or drink Violent behavior or behavior becomes too difficult to manage at home Increased drowsiness, or failure to respond normally Increasing headache, nausea or repeated vomiting Numbness or weakness of the face, one arm or one leg Slurred speech, trouble speaking, walking or seeing Fainting spell, dizziness or seizure Unexplained fever over 100.4 F (38.0 C) oral Altered Level Of Consciousness (Child) Level of consciousness is a measure of a persons ability to interact with other people and to react to the surroundings. A child with an altered level of consciousness may be irritable for a number of hours. The child cannot be calmed by holding, rocking, or feeding. Some children may be hyperactive and cant sleep. Others may be very sleepy and difficult to wake. Affected children may appear limp, with poor muscle tone. They may not respond to touch or voices. Their look may be vacant or blank. They may not make eye contact. Their cry may be weak and feeble. Some children may not move for a long time or show little interest in moving. They may be confused. There are many causes of altered consciousness. Generally, they are divided into medical reasons or injuries. The child may have low blood sugar, an infection, a metabolic abnormality, or a systemic disease. Other causes include drugs, abuse, or injuries such as a fall. A decreased level of consciousness is a medical emergency. Doctors must quickly determine the cause. This may include laboratory, radiology, and other types of testing. Initial treatment stabilizes breathing and heart rate. An intravenous (IV) line is used to give medications. Once the cause is determined,specific treatment for that cause is given. In almost all cases, the child will be admitted to the hospital for observation. Home Care: Medications: If any medications are prescribed, follow the doctors instructions for giving them to your child. General Care: Observe your child carefully for any changes in behavior. Stay with your child if you notice any altered behavior. If your child has diabetes, make sure that any approved medication is given on time and as prescribed. Give your child frequent healthy snacks and meals. Ensure your child is supervised while playing sports. Appropriate protective gear should be worn at all times. Follow Up as advised by the doctor or our staff. Get Prompt Medical Attention if any of the following occurs: Fever greater than 100.4F (38C) Extreme tiredness or difficulty waking; hyperactivity Lack of interest in the surroundings Poor muscle tone or limpness Weak, feeble cry No eye contact or response to touch or voices Increased headache Seizure Fainting:Uncertain Cause Fainting (syncope) is a temporary loss of consciousness ("passing out"). It occurs when blood flow to the brain is reduced. Near-fainting ("near-syncope") is very similar to fainting, but you do not fully "pass out". The common minor causes of fainting include: sudden fear, pain, nausea, emotional stress and overexertion. Suddenly standing up after sitting or lying for a long time can also cause fainting. The more serious causes for fainting are due to either a very slow or very fast or very slow heart beat ("arrhythmia"), other types of heart disease, dehydration, blood loss, seizure, stroke or ruptured blood vessel in the brain. Taking too much high blood pressure medicine can also cause low blood pressure and fainting. The exact cause of your episode is not certain. However, the tests today did not show any of the serious causes of fainting. Sometimes further testing is needed to find out if a serious problem exists. Therefore, it is important that you follow-up with your doctor as advised. Home Care: 1) Rest today. You may resume your normal activities when you are feeling back to normal. It is best to remain with someone who can check on you for the next 24 hours to watch for another episode of fainting. 2) If you become light-headed or dizzy, lie down immediately or sit with your head between your knees. 3) Because we do not know the exact cause of your near fainting spell, it is possible for another spell to occur without warning. Therefore, do not drive a car or operate dangerous equipment, do not take a bath alone (use a shower instead) and do not swim alone until your doctor says that you are no longer in danger of having another fainting spell. Follow Up with your doctor as advised. Get Prompt Medical Attention if any of the following occur: -- Another fainting spell occurs, which is not explained by the common causes listed above -- Chest, arm, neck, jaw, back or abdominal pain -- Shortness of breath -- Severe headache or seizure -- Blood in vomit, stools (black or red color) -- Unexpected vaginal bleeding -- Palpitations (very rapid or very slow or irregular heart beat) -- Signs of stroke: Weakness of an arm or leg or one side of the face Difficulty with speech or vision Extreme drowsiness, confusion, dizziness or fainting You have been given the following additional information: Confusion Altered Level Of Consciousness (Child) Syncope, Unk Cause (Electronically signed by Arian Patterson MD 07/08/2016 7:42)
--- NOTE | 2016-07-08 07:42 | ED MAR SUMMARY ---
..... Medication Administration Record [facility] [address] [place] [place] [address] Patient: MARIA DE JESUS NICHOLSON Visit ID: [id number] 81y, F Weight: 65.7 kg Height/Length: 66 in BMI: 23.4 ALLERGIES: Clindamycin HCl, Neosporin Start 00:05 07/08/2016 Mayte Vargas,, Continued Upon Admission 01:39 07/08/2016 Mayte Vargas, Medication Administered: IV NS (SALINE), Dose: IV Fluids over 30 minute(s), Rate: 1000 mL/hr, Dispensed: 1000 mL bag, Site: #1 right AC. Medication Ordered: IV NS : initial bolus 500 mL (1000 mL/hr), then 250 mL/hr for 2h (NOW); Routine. Given 00:05 07/08/2016 Mayte Vargas, Medication Administered: KCL [PO] (POTASSIUM CHLORIDE ER), Dose: 20 meq Tablets PO. Medication Ordered: KCl PO 20 meq (NOW). Start 00:06 07/08/2016 Mayte Vargas,, Continued Upon Admission 01:39 07/08/2016 Mayte Vargas, Medication Administered: KCL [IVPB] (POTASSIUM CHLORIDE), Dose: 20 meq IVPB over 2 hour(s), Rate: 50 mL/hr, Dispensed: 100 mL bag, Site: #1 right AC. Medication Ordered: KCl IV 20 meq/100mL (Run no faster than 10 units/hr, Run no faster than 10 mEq/hr).
--- NOTE | 2016-07-08 07:43 | ED MED RECONCILIATION SUMMARY ---
Patient: JOLENELAYKAYLI SanchezYN Mahnaz Medication Reconciliation Report [facility] VisitID: [id number] [address] [place] [address] 81y, F Registration Date/Time: 07/07/2016 Weight: 65.7 kg Height/Length: 66 in. BMI: 23.4 ALLERGIES: Clindamycin HCl, Neosporin The patient's Home Medications are listed below: Unknown. The source(s) of the original Home Medication information: EMS patient The following Medications were given to the patient in the Emergency Department: IV NS IV Fluids bolus 0, then 1000 mL/hr, administered: 07/08/2016 12:05:00 AM KCL [PO] PO 20 meq, administered: 07/08/2016 12:05:00 AM KCL [IVPB] IVPB bolus 0, then 20 meq 50 mL/hr, administered: 07/08/2016 12:06:00 AM The following Medications were prescribed to the patient: None.
--- NOTE | 2016-07-08 07:43 | ED MED RECONCILIATION SUMMARY ---
Patient: JOLENELAYKAYLI SanchezYN Mahnaz Medication Reconciliation Report [facility] VisitID: [id number] [address] [place] [address] 81y, F Registration Date/Time: 07/07/2016 Weight: 65.7 kg Height/Length: 66 in. BMI: 23.4 ALLERGIES: Clindamycin HCl, Neosporin The patient's Home Medications are listed below: Unknown. The source(s) of the original Home Medication information: EMS patient The following Medications were given to the patient in the Emergency Department: IV NS IV Fluids bolus 0, then 1000 mL/hr, administered: 07/08/2016 12:05:00 AM KCL [PO] PO 20 meq, administered: 07/08/2016 12:05:00 AM KCL [IVPB] IVPB bolus 0, then 20 meq 50 mL/hr, administered: 07/08/2016 12:06:00 AM The following Medications were prescribed to the patient: None.
--- NOTE | 2016-07-08 13:43 | Progress Note ---
Subjective General Pt discussed with Dr. Rawls who did admission. Care reviewed with nurses and dtr. Dtr notes she has continuing confusion. I saw pt at 0730 and she was oriented. She later thought she was in [place]. During night was very confused and actively hallucinating. She now is able to name me and is oriented to date but thinks she is in [place](this AM stated Kenneth). She denies any pain. She is not now seeing anything extraordinary but this AM saw kittens in her hospital room and is still very convinced they were there. Physical Exam Vital Signs / I&Os Vital Signs Date Time Temp Pulse Resp B/P Pulse O2 O2 Flow FiO2 Ox Delivery Rate 07/08 1030 98.2 66 16 115/49 94 Room Air 0.0 07/08 0909 Room Air 0.0 07/08 0643 99.1 70 18 107/54 96 Room Air 0.0 07/08 0309 98.6 74 17 109/57 96 Room Air 07/08 0300 Room Air General Appearance Alert, Cooperative, Mild distress Lungs Clear to auscultation Cardiovascular Regular rate and rhythm Abdomen Normal bowel sounds, Soft, No tenderness Extremities No edema Skin No Rashes Neurological Normal speech, Normal tone, Sensation intact, Reflexes 2+ and equal , Cranial nerves intact, Strength 5/5 x4 ext's, No lateralizing signs LAB Results Laboratory Tests 07/07 07/07 07/08 07/08 2145 2145 0437 0437 Chemistry Plasma Sodium (136 - 145 mmol/L) 144 Plasma Potassium (3.5 - 5.1 mmol/L) 2.5 Plasma Chloride (98 - 107 mmol/L) 102 CO2 (Enzymatic) (21 - 32 mmol/L) 33 BUN (7 - 18 mg/dL) 30 Creatinine (0.6 - 1.3 mg/dL) 0.9 Est GFR ( Amer) (mL/min) >60 Est GFR (Non-Af Amer) (mL/min) >60 Glucose (70 - 110 mg/dL) 118 Lactic Acid (0.4 - 2.0 mmol/L) 1.7 Plasma Calcium (8.5 - 10.1 mg/dL) 9.2 Plasma Magnesium (1.8 - 2.4 mg/dL) 1.9 Total Bilirubin (0.0 - 1.0 mg/dL) 0.8 AST (15 - 37 U/L) 86 ALT (12 - 78 U/L) 46 Alkaline Phosphatase (46 - 116 U/L) 66 Total Protein (6.4 - 8.2 g/dL) 7.3 Albumin (3.3 - 5.0 g/dL) 3.1 Amylase (25 - 115 U/L) 25 Lipase (73 - 393 U/L) 77 Procalcitonin (0 - 0.5 ng/mL) 2.2 2.1 Hematology WBC (4.5 - 11.5 K/uL) 12.4 RBC (4.00 - 5.20 M/uL) 4.95 Hgb (12.0 - 16.0 gm/dL) 14.9 Hct (36.0 - 46.0 %) 43.8 MCV (80 - 100 fL) 89 MCH (26 - 34 pg) 30 RDW (11.6 - 14.8 %) 14.1 Neut % (Auto) (50 - 75 %) 89.6 Lymph % (Auto) (25 - 40 %) 7.3 [place] % (Auto) (3 - 14 %) 3.0 Eos % (Auto) (0 - 4 %) 0 Baso % (Auto) (0 - 2 %) 0.1 Plt Count, EDTA (150 - 400 K/uL) 203 PUBS MCHC (31 - 37 g/dL) 34 Toxicology Urine Opiates Screen (NEGATIVE) NEGATIVE Urine Methadone Screen (NEGATIVE) NEGATIVE Ur Barbiturates Screen (NEGATIVE) NEGATIVE U Amphetamin/Meth Scrn (NEGATIVE) NEGATIVE MDMA (Ecstasy) Screen (NEGATIVE) NEGATIVE U Benzodiazepines Scrn (NEGATIVE) NEGATIVE Urine Cocaine Screen (NEGATIVE) NEGATIVE U Cannabinoids Screen (NEGATIVE) NEGATIVE Urines Urine Color STRAW Urine Appearance CLEAR Urine pH (5.0 - 8.0) 6.0 Ur Specific [place] (1.010 - 1.030) 1.025 Urine Protein (NEGATIVE) 2+ Urine Ketones (NEGATIVE) 2+ Urine Blood (NEGATIVE) 3+ Urine Nitrite (NEGATIVE) NEGATIVE Urine Bilirubin (NEGATIVE) NEGATIVE Urine Urobilinogen (0.2 - 1.0 EU/dL) 0.2 Ur Leukocyte Esterase (NEGATIVE) NEGATIVE Urine RBC (0 - 1 rbc/hpf) 3-5 Urine WBC (0 - 1 wbc/hpf) 0-1 Ur Epithelial Cells (0 - 5 EPI/hpf) NONE SEEN Urine Bacteria (NONE SEEN) TRACE (<1+) Urine Glucose (NEGATIVE) NEGATIVE Urine Comment CULT NOT INDICATED 07/08 07 Chemistry Plasma Sodium (136 - 145 mmol/L) 142 Plasma Potassium (3.5 - 5.1 mmol/L) 3.2 Plasma Chloride (98 - 107 mmol/L) 104 CO2 (Enzymatic) (21 - 32 mmol/L) 27 BUN (7 - 18 mg/dL) 29 Creatinine (0.6 - 1.3 mg/dL) 0.7 Est GFR ( Amer) (mL/min) >60 Est GFR (Non-Af Amer) (mL/min) >60 Glucose (70 - 110 mg/dL) 83 Plasma Calcium (8.5 - 10.1 mg/dL) 7.9 Plasma Magnesium (1.8 - 2.4 mg/dL) 1.8 Total Bilirubin (0.0 - 1.0 mg/dL) 0.7 AST (15 - 37 U/L) 74 ALT (12 - 78 U/L) 42 Alkaline Phosphatase (46 - 116 U/L) 53 Total Protein (6.4 - 8.2 g/dL) 5.6 Albumin (3.3 - 5.0 g/dL) 2.6 Microbiology Date/Time Procedure - Status Source Growth 07/08 0123 Blood Culture - RECD BLOOD Assessment and Plan Problem List 1. Syncope and collapse Plan Carotid michelle and mri brain 2. Confusion Plan Suspect CVA vs concussion. Elevated pct noted but no temp or abnl UA. 3. Hypertension Plan stable 4. Hypokalemia Plan Treated with IV supplement.
--- NOTE | 2016-07-08 16:50 | DIAGNOSTIC IMAGING REPORT ---
PROCEDURE: MR BRAIN WITHOUT CONTRAST INDICATION: confusion TECHNIQUE: Multiplanar multisequence MRI imaging of the brain without contrast. COMPARISON: None. FINDINGS: There is a moderate atrophy. There is also marked increased signal in the periventricular white matter consistent with small-vessel ischemic disease. No restricted diffusion to suggest acute ischemia. No evidence of acute or chronic intraparenchymal or extra-axial hemorrhage. No mass, mass effect, or midline shift. Normal signal in the visible bones. The sinuses are normally aerated. Visible extracranial soft tissues including the orbits are normal. IMPRESSION: 1. Atrophy and extensive periventricular small-vessel ischemic disease in the white matter.
--- NOTE | 2016-07-08 17:37 | DIAGNOSTIC IMAGING REPORT ---
PROCEDURE: US BILATERAL CAROTID DOPPLER INDICATION: Fall and confusion TECHNIQUE: Color Doppler duplex imaging of the carotid and vertebral vessels. COMPARISON: None. FINDINGS: Right carotid system: No significant stenosis visualized. The waveforms are normal. Mild plaque formation with a stenosis of less than 1-15% Left carotid system: No significant stenosis visualized. The waveforms are normal. Mild plaque formation with a stenosis of less than 1-15% Vertebral System: Antegrade vertebral artery flow bilaterally. Right common carotid artery peak systolic velocity 44 cm/second. Right internal carotid artery peak systolic velocity 38 cm/second. Right external carotid artery peak systolic velocity 51 cm/second. Right zxxfiwul-me-rykxgl carotid artery ratio 0.90 Right vertebral artery peak systolic velocity 40 cm/second. Left common carotid artery peak systolic velocity 46 cm/second. Left internal carotid artery peak systolic velocity 63 cm/second. Left external carotid artery peak systolic velocity 64 cm/second. Left tvmtwkgh-qb-udrcrh carotid artery ratio 1.4 Left vertebral artery peak systolic velocity 32 cm/second. IMPRESSION: 1. No hemodynamically significant stenosis in either carotid system. 2. Antegrade vertebral artery flow bilaterally. Velocity criteria are extrapolated from diameter data as defined by the Society of Radiologists in Ultrasound Consensus Conference, Radiology 2003; 229; 340-346.
--- NOTE | 2016-07-08 17:37 | DIAGNOSTIC IMAGING REPORT ---
PROCEDURE: US BILATERAL CAROTID DOPPLER INDICATION: Fall and confusion TECHNIQUE: Color Doppler duplex imaging of the carotid and vertebral vessels. COMPARISON: None. FINDINGS: Right carotid system: No significant stenosis visualized. The waveforms are normal. Mild plaque formation with a stenosis of less than 1-15% Left carotid system: No significant stenosis visualized. The waveforms are normal. Mild plaque formation with a stenosis of less than 1-15% Vertebral System: Antegrade vertebral artery flow bilaterally. Right common carotid artery peak systolic velocity 44 cm/second. Right internal carotid artery peak systolic velocity 38 cm/second. Right external carotid artery peak systolic velocity 51 cm/second. Right xakausct-ae-wxzfpe carotid artery ratio 0.90 Right vertebral artery peak systolic velocity 40 cm/second. Left common carotid artery peak systolic velocity 46 cm/second. Left internal carotid artery peak systolic velocity 63 cm/second. Left external carotid artery peak systolic velocity 64 cm/second. Left hgajcmbw-qt-tddlmk carotid artery ratio 1.4 Left vertebral artery peak systolic velocity 32 cm/second. IMPRESSION: 1. No hemodynamically significant stenosis in either carotid system. 2. Antegrade vertebral artery flow bilaterally. Velocity criteria are extrapolated from diameter data as defined by the Society of Radiologists in Ultrasound Consensus Conference, Radiology 2003; 229; 340-346.
[2016-07-09 00:59] VITALS: BP 98/45
[2016-07-09 05:47] VITALS: BP 125/45
[2016-07-09 10:32] VITALS: BP 116/52
--- NOTE | 2016-07-09 13:41 | DIAGNOSTIC IMAGING REPORT ---
PROCEDURE: 2-D M-mode echo Doppler CLINICAL INDICATION: Syncope heart murmur TECHNIQUE: Standard technique COMPARISON: None available FINDINGS: The aortic valve is sclerotic but no stenosis appreciated. Mild aortic insufficiency is detected. The mitral valve exhibits mild to moderate mitral regurgitation no stenosis seen. The tricuspid valve exhibits mild tricuspid insufficiency with RVSP 33 the pulmonic valve is normal left and right atrial dimensions are normal right ventricular dimension is normal with RVSP 33 RV function is normal. LVH is present LV contractility is preserved with an ejection fraction is 70% no wall motion abnormality is seen. No abnormalities of the pericardium or aortic root are seen IMPRESSION: Aortic sclerosis no stenosis Mild aortic insufficiency Mild to moderate mitral regurgitation Mild tricuspid regurgitation RVSP 33 Concentric LVH Stage I diastolic dysfunction Ejection fraction 70% with normal contraction
[2016-07-09 14:57] VITALS: BP 124/61
[2016-07-09 19:14] VITALS: BP 129/65
[2016-07-09 23:00] VITALS: BP 119/75
[2016-07-10 02:27] VITALS: BP 125/79
[2016-07-10 06:48] VITALS: BP 136/53
[2016-07-10 10:28] VITALS: BP 148/83
[2016-07-10] MEDS ORDERED: ASPIRIN ADULT L81 M1 PO (12:54)
[2016-07-10] MEDS ORDERED: ALTOPREV40 MG PO (12:55)
[2016-07-10] MEDS ORDERED: HYDROCHLOROTHIA25 MG PO (12:56)
--- NOTE | 2016-07-10 12:59 | Provider's Discharge Care Plan ---
Problem, Goal, Plan Problem List 1. Hypertension Goals: Improve disease control Instructions: Take meds as directed 2. Syncope and collapse Goals: Improved health/wellness Instructions: Take meds as directed 3. Confusion Goals: Improved health/wellness Instructions: Anticipate resolution with time 4. Concussion Goals: Improved health/wellness Instructions: Avoid vigorous exercise or mental strain 5. Hyperlipidemia Goals: Improve disease control Instructions: Take meds as directed
--- NOTE | 2016-07-10 14:23 | DISCHARGE SUMMARY ---
ADMIT DATE: 07/08/2016 DISCHARGE DATE: 07/10/2016 ADMITTING DIAGNOSES: 1. Fall. 2. Syncope and collapse. 3. Confusion. 4. Hypokalemia. 5. Hypertension. DISCHARGE DIAGNOSES: 1. Fall. 2. Concussion. 3. Syncope and collapse. 4. Confusion. 5. Hypokalemia. 6. Hypertension. 7. Hyperlipidemia. BRIEF HISTORY: An 81-year-old female found down in her apartment confused, transported to the ER for evaluation and admitted for management. HOSPITAL COURSE: The patient was admitted and treated with IV hydration and monitoring. Initial labs showed hypokalemia. She was given potassium supplementation. Additionally, an echocardiogram, carotid ultrasound, and CT head were performed. An MRI was also performed. All of the studies were benign except for normal aging changes of the brain. While the patient denied pain on admission, she did admit to tenderness in the back of the head following admission, her confusion waxed and waned during her hospital stay, but seemed to be gradually improving. She became able to safely ambulate with assistance. Family noted she had not returned completely to baseline, but was improving. Vital signs remained stable. The patient remained afebrile. PHYSICAL EXAMINATION: On discharge was normal with the patient alert and oriented x3, cranial nerves II through XII intact. Motor and sensory grossly normal. However, she still seemed to be forgetful of recent events. DISCHARGE INSTRUCTIONS/MEDICATIONS: Disposition: Home. Discharge medications: 1. Aspirin 81 mg p.o. daily. 2. Lovastatin 40 mg p.o. at bedtime. 3. Hydrochlorothiazide 25 mg p.o. daily. 4. Special instructions: Light activity at home. Follow up with me in 2 weeks, 24-hour supervision recommended until the patient was reevaluated within 2 weeks due to forgetfulness.
[2016-07-10 14:37] VITALS: BP 154/64
== END 2016-07-10 15:15 | disposition home or self-care (01) | DRG 89 ==
LOC: ED SRH 21:11 → TRANS SRH 07-08 00:32 → ACUTE2 SRH 07-08 00:32 → TRANS SRH 07-08 00:32 → ACUTE2 SRH 07-08 01:48
PROVIDERS: ADMIT Pediatrics
DX: S06.0X9A Concussion with loss of consciousness of unspecified duration, initial encounter (principal); R44.3 Hallucinations, unspecified; W18.30XA Fall on same level, unspecified, initial encounter; Y92.009 Unspecified place in unspecified non-institutional (private) residence as the place of occurrence of the external cause; Y99.8 Other external cause status; R55 Syncope and collapse; R41.0 Disorientation, unspecified; E86.0 Dehydration; R39.2 Extrarenal uremia; E87.6 Hypokalemia; E78.5 Hyperlipidemia, unspecified; I10 Essential (primary) hypertension; Z72.0 Tobacco use
CPT/HCPCS: 81460; 83845; 85241; 85244; 90004; 90047; 90065; 90074; 90098; 90100; 92031; 92235; 92530; 92720; 92760; 92761; 92762; 92763; 92764; 92765; 92766; 92767; 93004; 95059